=== PATIENT | female | born 1935 | race American Indian/Alaskan Native ===

== ENCOUNTER 2019-09-22 09:50 | Outpatient (CLI) | payer MEDICARE ==
--- NOTE | 2019-09-22 12:35 | Mammography Report ---
DIGITAL SCREENING MAMMOGRAM WITH CAD, 09/22/2019 INDICATION: Routine screening mammography. TECHNIQUE: Digital bilateral 2D mammography was obtained in the craniocaudal and mediolateral obliq ue projections. This examination was interpreted with the benefit of Computer-Aided Detection analysi s. COMPARISON: 02/05/2017 and 01/26/2016 FINDINGS: Breast Density: The breasts are heterogeneously dense, which may obscure small masses. There has been some fatty involution since the last exam. Left parenchymal asymmetries require additi onal imaging. No architectural distortion or suspicious calcifications. There is no evidence of domin ant mass, suspicious calcifications or architectural distortion in the right breast. IMPRESSION: Left asymmetries requiring additional imaging. Recommend recall for left lateral, exagger ated CC and spot compression MLO and CC views and left breast ultrasound if needed. Follow up recommendation: Special View: Spot Category 0: Incomplete. Needs additional imaging evaluation and/or prior mammograms for comparison. A "normal" or negative report should not discourage follow up or biopsy of a clinically significant f inding. A written summary of these findings will be mailed to the patient. The patient will be entered into a mammography reporting system which will generate a reminder letter for the patient's next appointmen t at the appropriate interval. The [employer] recommends yearly mammograms starting at age 40 and continuing as l todd as a woman is in good health. Breast MRI is recommended for women with an approximate 20-25% or greater lifetime risk of breast cancer, including women with a strong family history of breast or ova zulay cancer or who have been treated for Hodgkin's disease. Signer Name: Serge Granado MD Signed: 09/22/2019 12:30 PM Workstation Name: [id number]
== END 2019-09-22 09:51 | disposition home or self-care (01) ==
LOC: SPVWC 09:50
PROVIDERS: ATTEND Internal Medicine
DX: Z12.31 Encounter for screening mammogram for malignant neoplasm of breast (principal); I10 Essential (primary) hypertension; E78.00 Pure hypercholesterolemia, unspecified; E03.9 Hypothyroidism, unspecified
CPT/HCPCS: 77067

== ENCOUNTER 2020-09-26 08:00 | Outpatient (CLI) | payer MEDICARE ==
--- NOTE | 2020-09-29 15:14 | Mammography Report ---
DIGITAL SCREENING MAMMOGRAM WITH CAD, 09/28/2020 INDICATION: Routine screening mammography. -screening TECHNIQUE: Digital bilateral 2D mammography was obtained in the craniocaudal and mediolateral obliq ue projections. This examination was interpreted with the benefit of Computer-Aided Detection analysi s. COMPARISON: 09/22/2019 FINDINGS: Breast Density: The breasts are heterogeneously dense, which may obscure small masses. There is no evidence of dominant mass, suspicious calcifications or architectural distortion in eithe r breast. IMPRESSION: No evidence of malignancy Follow up recommendation: Routine yearly BI-RADS Category 1: Negative. A "normal" or negative report should not discourage follow up or biopsy of a clinically significant f inding. A written summary of these findings will be mailed to the patient. The patient will be entered into a mammography reporting system which will generate a reminder letter for the patient's next appointmen t at the appropriate interval. The [employer] recommends yearly mammograms starting at age 40 and continuing as l todd as a woman is in good health. Breast MRI is recommended for women with an approximate 20-25% or greater lifetime risk of breast cancer, including women with a strong family history of breast or ova zulay cancer or who have been treated for Hodgkin's disease. Signer Name: Elia Donohue MD Signed: 09/29/2020 3:10 PM Workstation Name: [id number]
== END 2020-09-26 08:01 | disposition home or self-care (01) ==
LOC: SPVWC 08:00
PROVIDERS: ATTEND Internal Medicine
DX: Z12.31 Encounter for screening mammogram for malignant neoplasm of breast (principal)
CPT/HCPCS: 77067

== ENCOUNTER 2021-08-31 14:18 | Outpatient (CLI) | payer MEDICARE ==
--- NOTE | 2021-09-03 07:19 | XRay Report ---
Right hip 3 views INDICATION: Right hip pain IMPRESSION: The right hip is osteopenic but intact. Mild degenerative changes of the right hip. 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 Moderate degenerative changes of both SI joints. Signer Name: Santos Mari MD Signed: 09/03/2021 7:15 AM Workstation Name: [id number]
--- NOTE | 2021-09-03 07:20 | XRay Report ---
Lumbar spine 3 views INDICATION: Low back pain IMPRESSION: Diffuse osteopenia. Multilevel severe facet arthropathy involving L3-L4 through L5-S1. Th is causes at least mild bilateral neural foraminal stenosis at L5-S1. Moderate degenerative changes o f both SI joints. Signer Name: Santos Mari MD Signed: 09/03/2021 7:16 AM Workstation Name: [id number]
== END 2021-08-31 14:19 | disposition home or self-care (01) ==
LOC: SPVIMAG 14:18
PROVIDERS: ATTEND Internal Medicine
DX: M16.11 Unilateral primary osteoarthritis, right hip (principal); M47.817 Spondylosis without myelopathy or radiculopathy, lumbosacral region; M47.898 Other spondylosis, sacral and sacrococcygeal region; M85.88 Other specified disorders of bone density and structure, other site; R82.71 Bacteriuria
CPT/HCPCS: 72100

== ENCOUNTER 2022-02-07 10:15 | Outpatient (CLI) | payer MEDICARE | END 2022-02-07 10:16 | disposition home or self-care (01) | LOC: SPVWC 10:15 | PROVIDERS: ATTEND Internal Medicine | DX: Z12.31 Encounter for screening mammogram for malignant neoplasm of breast (principal) | CPT/HCPCS: 77067 ==

== ENCOUNTER 2022-05-16 12:20 | Outpatient (CLI) | payer MEDICARE ==
--- NOTE | 2022-05-16 14:03 | Ultrasound Report ---
ULTRASOUND BREAST LEFT LIMITED, 05/16/2022 CLINICAL INFORMATION / INDICATION: N63.0 BREAST MASS. TECHNIQUE: Targeted ultrasound evaluation was performed of the area of interest. COMPARISON: Mammograms dated 02/07/2022, 09/26/2020, 09/22/2019. Ultrasound dated 02/05/2016 FINDINGS: The 2:00 position 8 cm from the nipple there is an 8 mm complicated cyst. There is floating debris wi thin the cyst. Well marginated. There is no vascularity. The patient has had waxing and waning nodule s in this location previously. In 2016 7 mm simple cyst was identified in the vicinity of this. IMPRESSION: There is a complicated cyst in the 2:00 position 8 cm from the nipple. Follow up recommendation: Six-month follow-up ultrasound. BI-RADS Category 3: PROBABLY BENIGN. Followup in 6 months. A normal or "negative" report should not preclude biopsy or follow-up of a clinically suspicious find ing. Signer Name: Aftab Desai MD Signed: 05/16/2022 1:58 PM Workstation Name: [id number]
== END 2022-05-16 12:21 | disposition home or self-care (01) ==
LOC: MAMMO 12:20
PROVIDERS: ATTEND Internal Medicine
DX: N60.02 Solitary cyst of left breast (principal); N63.20 Unspecified lump in the left breast, unspecified quadrant